=== PATIENT | male | born 1960 | race Caucasian/White ===

== ENCOUNTER 2022-08-03 06:11 | Day surgery (SDC) | payer OTHER ==
[2022-07-30 12:59] VITALS: BMI 32.8
[2022-08-03] MEDS ORDERED: BUPIVACAINE HCL/EPINEPHRINE/PF 30 ML VIAL IJ ONE (07:13)
[2022-08-03] MEDS ORDERED: DEXAMETHASONE SOD PHOSPHATE 4 MG/1 ML VIAL ONE (07:20)
[2022-08-03] MEDS ORDERED: PROPOFOL 20 ML ONE ×2 (07:21→08:20)
[2022-08-03] MEDS ORDERED: MIDAZOLAM HCL 2 MG/2 ML SINGLE DOSE VIAL ONE (07:21)
[2022-08-03] MEDS ORDERED: ceFAZolin SODIUM 1 GM VIAL ONE (08:21)
[2022-08-03] MEDS ORDERED: ONDANSETRON 4 MG/2 ML VIAL ONE (08:21)
[2022-08-03] MEDS ORDERED: ROPIVACAINE HCL 0.5% 30ML VIAL ONE (08:24)
[2022-08-03] MEDS ORDERED: oxyCODONE HCL 5 MG TABLET PO PRN ×2 (08:44)
[2022-08-03] MEDS ORDERED: ONDANSETRON 4 MG/2 ML VIAL IVPUSH PRN (08:44)
[2022-08-03] MEDS ORDERED: LACTATED RINGERS SOLUTION 1,000 ML IV SCH (08:45)
[2022-08-03] MEDS ORDERED: ALBUTEROL SO4 HFA INHALER IH ONE (08:54)
[2022-08-03] MEDS ORDERED: methylPREDNISolone NA SUCC 125 MG/2 ML VIAL ONE (08:54)
[2022-08-03] MEDS ORDERED: METOPROLOL TARTRATE 5 MG/5 ML VIAL ONE (08:54)
[2022-08-03] MEDS ORDERED: LABETALOL HCL 5 MG/1 ML (100MG/20 ML VIAL) ONE (09:14)
[2022-08-03] MEDS ORDERED: ACETAMINOPHEN 325 MG TABLET (FP) PO PRN (11:33)
[2022-08-03 12:50] VITALS: TEMP 97.7
[2022-08-03 12:56] VITALS: BP 110/60; PULSE 65; RESP 18
== END 2022-08-03 12:39 | disposition home or self-care (01) ==
LOC: FASU 06:11
PROVIDERS: ATTEND Orthopaedic Surgery
PROC: 0RCJ4ZZ Extirpation of Matter from Right Shoulder Joint, Percutaneous Endoscopic Approach (ICD-10-PCS; 2022-08-03)
PROC: 0RBJ4ZZ Excision of Right Shoulder Joint, Percutaneous Endoscopic Approach (ICD-10-PCS; principal; 2022-08-03 08:15)
PROC: 0RNJ4ZZ Release Right Shoulder Joint, Percutaneous Endoscopic Approach (ICD-10-PCS; 2022-08-03 08:15)
DX: S46.011D Strain of muscle(s) and tendon(s) of the rotator cuff of right shoulder, subsequent encounter (principal); M75.51 Bursitis of right shoulder; M65.811 Other synovitis and tenosynovitis, right shoulder; S43.431D Superior glenoid labrum lesion of right shoulder, subsequent encounter; M75.01 Adhesive capsulitis of right shoulder; X58.XXXD Exposure to other specified factors, subsequent encounter
CPT/HCPCS: 88300-TC; 94760; C1713